=== PATIENT | female | born 1995 | race Caucasian/White ===

== ENCOUNTER 2019-05-18 08:18 | Day surgery (SDC) | payer OTHER ==
[2019-05-18] VITALS (13 sets, daily range): BP systolic 121–151; BP diastolic 68–83; PULSE 60–74; RESP 16–22; Ht 175.3 cm; Wt 119.9 kg
[~2019-05-18] VITALS: Ht 175.3 cm; Wt 119.9 kg
[2019-05-18] MEDS ORDERED: SOD CHLORIDE 0.9% 1,000 ML IV SCH (11:30)
[2019-05-18] MEDS ORDERED: CEFAZOLIN 2 GM/50 ML (PMX) 50 ML IVPB ONE (11:30)
--- NOTE | 2019-05-18 12:20 | PREAC ---
Date/Time of Note Date/Time of Note DATE: 05/18/19 TIME: 12:19 Anesthesia Eval and Record Evaluation Time Pre-Procedure Interview DATE: 05/18/19 TIME: 12:19 Age 24 Sex female NPO: 8 hrs Preoperative diagnosis cholelithiasis Planned procedure laparoscopic cholecystectomy Past Medical History Past Medical History: Includes Pulm: Asthma (childhood ) GI: Obesity Surgery & Anesthesia Issues No known issue Meds Anticoagulation: No Beta Humza within 24 hr: No Reason Beta Humza not given: Pt. not on B-Humza No Active Prescriptions or Reported Meds Current Medications Sodium Chloride 1,000 ml @ 75 mls/hr [id number] IV Last administered on 05/18/19at 09:35; Admin Dose 75 MLS/HR; Start 05/18/19 at 11:30 Meds reviewed: Yes Allergies Coded Allergies: sumatriptan (Verified Allergy, Unknown, 05/18/19) chest pain Allergies Reviewed: Yes Labs/Studies Labs Reviewed: Reviewed by anesthesiologist test: Negative Pre-procedure Exam Last vitals Vital Signs Date Temp Pulse Resp B/P (MAP) Pulse Ox O2 O2 Flow FiO2 Time Delivery Rate 05/18/19 97.7 63 16 121/82 100 09:46 (95) Airway: Adequate mouth opening, Adequate thyromental dist Mallampati: Mallampati II Teeth: Normal Lung: Normal Heart: Normal ASA Physical Status ASA physical status: 2 Emergency: None Planned Anesthetic General/MAC: ETT Nerve block: TAP (bilateral) Planned Pain Management Single shot nerve block, Parenteral pain med Pre-operative Attestations Prior to commencing anesthesia and surgery, the patient was re-evaluated, there was verification of: *The patient's identity *The results of appropriate recent lab work and preoperative vital signs *The above evaluation not changing prior to induction *Anesthetic plan, risk benefits, alternative and complications discussed with patient/family; questions answered; patient/family understands, accepts and wishes to proceed. ANNABELLA YARBROUGH MD May 18, 2019 12:20
[2019-05-18] MEDS ORDERED: FENTAnyl 50 MCG/ML VIAL IV PRN (12:30)
[2019-05-18] MEDS ORDERED: OXYCODONE/ACETAMINOPHEN (5/325) TAB PO PRN (12:30)
[2019-05-18] MEDS ORDERED: DIPHENHYDRAMINE 50 MG INJ IV PRN (12:30)
[2019-05-18] MEDS ORDERED: PROCHLORPERAZINE 10 MG INJ IV PRN (12:30)
[2019-05-18] MEDS ORDERED: MEPERIDINE 25 MG INJ IV PRN (12:30)
[2019-05-18] MEDS ORDERED: ONDANSETRON 4 MG INJ IV PRN (12:30)
[2019-05-18] MEDS ORDERED: HYDROmorphONE 1 MG/5 ML IV SYRINGE IV PRN ×3 (12:30)
[2019-05-18] MEDS ORDERED: BUPIVACAINE 0.25% (MPF) 30 ML INJ ONE (12:31)
[2019-05-18] MEDS ORDERED: ROCURONIUM 50 MG INJ ONE (12:37)
[2019-05-18] MEDS ORDERED: PROPOFOL 20 ML ONE ×2 (12:37→12:59)
[2019-05-18] MEDS ORDERED: LIDOCAINE 2% (SDV) 5 ML INJ ONE (12:37)
[2019-05-18] MEDS ORDERED: SUCCINYLCHOLINE CHLORIDE 100 MG/5 ML SYG IV ONE (12:37)
[2019-05-18] MEDS ORDERED: ROPIVACAINE 0.5 % 30 ML VIAL ONE ×2 (12:38→12:40)
[2019-05-18] MEDS ORDERED: MIDAZOLAM 1 MG/ML 2 ML INJ ONE (12:38)
[2019-05-18] MEDS ORDERED: FENTAnyl 50 MCG/ML VIAL ONE (12:38)
[2019-05-18] MEDS ORDERED: CEFAZOLIN 1 GM INJ ONE (13:13)
[2019-05-18] MEDS ORDERED: FAMOTIDINE 20 MG INJ ONE (13:17)
[2019-05-18] MEDS ORDERED: DEXAMETHASONE 4 MG/ML 5 ML INJ ONE (13:17)
[2019-05-18] MEDS ORDERED: ONDANSETRON 4 MG INJ ONE (13:17)
[2019-05-18] MEDS ORDERED: EPHEDrine 25 MG/5 ML SYG ONE (13:36)
[2019-05-18] MEDS ORDERED: SUGAMMADEX SODIUM 200 MG/2 ML VIAL IV ONE (13:37)
--- NOTE | 2019-05-18 13:44 | OPR ---
Date/Time of Note Date/Time of Note DATE: 05/18/19 TIME: 13:42 Operative Report Procedure Date: May 18, 2019 Preoperative Diagnosis symptomatic gallstones Postoperative Diagnosis same Operation/Procedure Performed laparoscopic cholecystectomy Surgeon see signature line Volunteer Patient Representative Tim Smiley Anesthesia Type: general Estimated Blood Loss: 0 - 10 ml's Transfusion none Specimen gallbladder Grafts/Implants none Complications none Pt Condition Post Procedure: stable Indications This is a 24-year-old female with symptomatic gallstones. She required surgical excision of her gallbladder. Risks alternatives benefits and personal were discussed the patient. Patient expressed understanding and consents to the operation. Procedure Description Patient is taken to the OR and prepped and draped in usual sterile fashion. Surgical timeout was performed. IV antibiotics given. Infraumbilical transverse incision is made with a 15 blade. Dissection is carried down to the fascia. The fascia was grasped with Kimber's and divided curved [place] scissors. 0 Vicryl use this was placed into the fascia. Awan trocar is introduced. Pneumoperitoneum was established. Midepigastric 12 mm optical trochars placed under direct visualization. Right upper quadrant right upper flank 5 mm optical trochars were placed under direct visualization. Upon initial inspection there is some adhesions that were taken down bluntly. The gallbladder is grasped with the fundus and retracted and lateral cephalad direction. [place] graspers used to dissect out the cystic duct and cystic artery. The critical view was established. The cystic duct is divided with the clips proximal 1 clip distal and the division is performed laparoscopic scissors. Cystic artery was divided 3 clips proximal clip distal and the divisions performed laparoscopic scissors. The gallbladder was taken of the gallbladder bed. Good hemostasis status. The gallbladder is retrieved Endo Catch bag. All ports removed under direct visualization. Infraumbilical 0 Vicryl use this was tied down. Skin is closed with skin benny. A tap block was provided by the anesthesiology to begin the case. Dry dressings were applied. Mitch JO May 18, 2019 13:44
[2019-05-18] MEDS ORDERED: HYDROCODONE/APAP (5/325) TAB PO ONE (14:00)
[2019-05-18] MEDS ORDERED: KETOROLAC 30 MG INJ IV STA (14:22)
[2019-05-18] MEDS ORDERED: ACETAMINOPHEN 325 MG TAB PO ONE (14:30)
[2019-05-18] MEDS ORDERED: ACETAMINOPHEN 325 MG TAB ONE (14:30)
--- NOTE | 2019-05-18 14:42 | PAC ---
Date/Time of Note Date/Time of Note DATE: 05/18/19 TIME: 14:42 Post-Anesthesia Notes Post-Anesthesia Note Last documented vital signs Vital Signs Date Temp Pulse Resp B/P (MAP) Pulse Ox O2 O2 Flow FiO2 Time Delivery Rate 05/18/19 68 19 139/77 100 Room Air 14:25 (97) 05/18/19 98.0 13:56 Activity: WNL Respiratory function: WNL Cardiovascular function: WNL Mental status: Baseline Pain reasonably controlled: Yes Hydration appropriate: Yes Nausea/Vomiting absent: Yes ANNABELLA YARBROUGH MD May 18, 2019 14:42
== END 2019-05-18 16:20 | disposition home or self-care (01) ==
LOC: SDS 08:18
PROVIDERS: ATTEND Surgery
DX: K80.10 Calculus of gallbladder with chronic cholecystitis without obstruction (principal)
CPT/HCPCS: 47562; 84703; 88304; J0690; J1100; J1170; J1885; J2175; J2250; J2405; J2795; J3010; Z7512; Z7610